=== PATIENT | male | born 1995 | race Caucasian/White ===

== ENCOUNTER 2023-10-05 17:19 | Emergency (ER) | payer OTHER ==
[~2023-10-05] VITALS: Ht 180.3 cm; Wt 81.0 kg
[2023-10-05 17:38] VITALS: TEMP 98.5; O2SAT 98
[2023-10-05] MEDS ORDERED: KETOROLAC 60MG/2ML VIAL IM ONE (18:45)
[2023-10-05] MEDS ORDERED: METH-653 MT (18:49)
[2023-10-05 19:11] VITALS: BP 134/73; PULSE 93; RESP 20
== END 2023-10-05 19:19 | disposition home or self-care (01) ==
LOC: ER 17:19
DX: M31.19 Other thrombotic microangiopathy (principal); M54.2 Cervicalgia; F19.90 Other psychoactive substance use, unspecified, uncomplicated; V98.8XXA Other specified transport accidents, initial encounter; Y93.89 Activity, other specified; Y92.89 Other specified places as the place of occurrence of the external cause; Y99.8 Other external cause status
CPT/HCPCS: 99283; 96372; J1885

== ENCOUNTER 2024-02-23 21:48 | Emergency (ER) | payer OTHER ==
[~2024-02-23] VITALS: Ht 170.2 cm; Wt 78.0 kg
[~2024-02-23 21:48] MED LIST: METH-653 MT
[2024-02-23 22:21] VITALS: O2SAT 99
[2024-02-23 22:50] LABS: BASOPHILS % 0.6 % (0.0-2.0); EOSINOPHILS % 1.4 % (0.0-5.0); HEMATOCRIT. 42.5 % (42.0-52.0); HEMOGLOBIN. 14.4 g/dL (14.0-18.0); LYMPHOCYTES % 37.9 % (20.0-50.0); MEAN CORPUSCULAR HEMOGLOBIN 29.4 pg (28.0-32.0); MEAN CORPUSCULAR HGB CONC 33.7 g/dL (31.0-37.0); MEAN CORPUSCULAR VOLUME 87.3 fL (80.0-94.0); MEAN PLATELET VOLUME 6.9 fl (7.4-10.4); MONOCYTES % 7.1 % (2.0-8.0); PLATELET 272 x1000/uL (130-400); RED BLOOD CELL COUNT 4.88 mill/uL (4.7-6.1); RED CELL DISTRIBUTION WIDTH 13.2 % (11.6-14.6); WHITE BLOOD COUNT 10.4 x1000/uL (4.5-11.0)
[2024-02-23 23:03] LABS: ALANINE AMINOTRANSFERASE 176 IU/L (10-49); ALBUMIN 5.2 g/dL (3.2-4.8); ASPARTATE AMINOTRANSFERASE 59 IU/L (<34); BILIRUBIN TOTAL 0.5 mg/dL (0.1-1.0); CALCIUM 9.5 mg/dL (8.7-10.4); CARBON DIOXIDE 28 mEq/L (21-32); CHLORIDE 105 mEq/L (98-107); GLUCOSE 88 mg/dL (70-105); POTASSIUM 4.3 mEq/L (3.5-5.1); PROTEIN TOTAL 8.1 g/dL (6.0-8.3); SODIUM 138 mEq/L (136-145); UREA NITROGEN BLOOD 21 mg/dL (9-23)
[2024-02-24] MEDS ORDERED: IBUPROFEN 600MG TABLET PO STA (01:44)
[2024-02-24 02:05] LABS: CLARITY URINE CLEAR (CLEAR); COLOR URINE YELLOW (YELLOW); GLUCOSE URINE NEGATIVE (NEGATIVE); KETONES URINE NEGATIVE (NEGATIVE); LEUKOCYTE ESTERASE URINE NEGATIVE (NEGATIVE); NITRITE URINE NEGATIVE (NEGATIVE); OCCULT BLOOD URINE NEGATIVE (NEGATIVE); PROTEIN URINE NEGATIVE (NEGATIVE); SPECIFIC GRAVITY URINE 1.019 (1.005-1.030); UROBILINOGEN URINE 0.2 E.U./dL (0.2-1.0)
[2024-02-24] MEDS ORDERED: IBUP-2028 MT (04:29)
[2024-02-24 04:33] VITALS: BP 132/89; PULSE 63; RESP 18; TEMP 97.8
== END 2024-02-24 04:37 | disposition home or self-care (01) ==
LOC: ER 21:48
DX: R10.12 Left upper quadrant pain (principal)
CPT/HCPCS: 36415; 74176; 80053; 81003; 85025; 99284